=== PATIENT | female | born 1980 | race Two or more races ===

== ENCOUNTER 2018-01-25 19:32 | Inpatient (IN) | payer OTHER ==
[~2018-01-25] VITALS: Ht 160 cm; Wt 60.8 kg
[2018-01-25 19:50] VITALS: BP 106/61
--- NOTE | 2018-01-25 20:03 | Emergency Room Report ---
History of Present Illness General Chief Complaint: Vomiting Source: Patient Present Illness HPI Patient reports that she had gone hiking earlier this afternoon After that they ate outside at a fast food restaurant it was fractured chicken Patient usually eats fairly healthy Soon after that she became nauseated has had several episodes of vomiting epigastric discomfort Denies any chest pain or short of breath and eyes any fevers or chills denies any dysuria frequency Allergies: Coded Allergies: Oyster (Verified Allergy, Unknown, 01/25/18) Patient History Past Medical History: see triage record Pertinent Family History: none Last Menstrual Period: yesterday Now: No Reviewed Nursing Documentation: PMH: Agreed; PSxH: Agreed Nursing Documentation-PMH Past Medical History: No Stated History Review of Systems All Other Systems: negative except mentioned in HPI Physical Exam Vital Signs Date Time Temp Pulse Resp B/P (MAP) Pulse Ox O2 Delivery O2 Flow Rate FiO2 01/25/18 19:42 98.2 91 16 106/66 99 Room Air Sp02 EP Interpretation: reviewed, normal General Appearance: no apparent distress Head: normocephalic, atraumatic Eyes: bilateral eye PERRL, bilateral eye EOMI ENT: hearing grossly normal, normal pharynx Neck: supple Respiratory: lungs clear Cardiovascular #1: regular rate, rhythm, no edema Gastrointestinal: non tender - However subjectively points to epigastric area Musculoskeletal: normal inspection Neurologic: alert, oriented x3, responsive Skin: normal color, no rash Lymphatic: no adenopathy Medical Decision Making Diagnostic Impression: Primary Impression: Appendicitis ER Course With the history exam and presentation, multiple differentials considered, including but not limited to appendicitis, gastritis, cholecystitis, diverticulitis CT imaging does reveal acute appendicitis patient provided broad-spectrum antibiotics requiring further acute surgical intervention and hospital admission Labs Test 01/25/18 20:01 01/25/18 20:10 White Blood Count 20.0 K/UL (4.8-10.8) Red Blood Count 4.17 M/UL (4.20-5.40) Hemoglobin 13.7 G/DL (12.0-16.0) Hematocrit 38.0 % (37.0-47.0) Mean Corpuscular Volume 91 FL (80-99) Mean Corpuscular Hemoglobin 32.9 PG (27.0-31.0) Mean Corpuscular Hemoglobin Concent 36.1 G/DL (32.0-36.0) Red Cell Distribution Width 10.2 % (11.6-14.8) Platelet Count 279 K/UL (150-450) Mean Platelet Volume 6.2 FL (6.5-10.1) Neutrophils (%) (Auto) % (45.0-75.0) Lymphocytes (%) (Auto) % (20.0-45.0) Monocytes (%) (Auto) % (1.0-10.0) Eosinophils (%) (Auto) % (0.0-3.0) Basophils (%) (Auto) % (0.0-2.0) Differential Total Cells Counted 100 Neutrophils % (Manual) 91 % (45-75) Lymphocytes % (Manual) 9 % (20-45) Monocytes % (Manual) 0 % (1-10) Eosinophils % (Manual) 0 % (0-3) Basophils % (Manual) 0 % (0-2) Band Neutrophils 0 % (0-8) Platelet Estimate Adequate Platelet Morphology Normal Red Blood Cell Morphology Normal Urine Color Chastity Urine Appearance Slightly cloudy Urine pH 5 (4.5-8.0) Urine Specific [place] 1.025 (1.005-1.035) Urine Protein 1+ (NEGATIVE) Urine Glucose (UA) Negative (NEGATIVE) Urine Ketones 1+ (NEGATIVE) Urine Blood 4+ (NEGATIVE) Urine Nitrite Negative (NEGATIVE) Urine Bilirubin Negative (NEGATIVE) Urine Ictotest Negative (NEGATIVE) Urine Urobilinogen 1 MG/DL (0.0-1.0) Urine Leukocyte Esterase 1+ (NEGATIVE) Urine RBC 10-15 /HPF (0 - 2) Urine WBC 10-15 /HPF (0 - 2) Urine Squamous Epithelial Cells Many /LPF (NONE/OCC) Urine Bacteria Moderate /HPF (NONE) Urine HCG, Qualitative Negative (NEGATIVE) Sodium Level 141 MMOL/L (136-145) Potassium Level 3.0 MMOL/L (3.5-5.1) Chloride Level 104 MMOL/L (98-107) Carbon Dioxide Level 28 MMOL/L (21-32) Anion Gap 9 mmol/L (5-15) Blood Urea Nitrogen 15 mg/dL (7-18) Creatinine 1.0 MG/DL (0.55-1.30) Estimat Glomerular Filtration Rate > 60 mL/min (>60) Glucose Level 109 MG/DL (74-106) Calcium Level 9.0 MG/DL (8.5-10.1) Total Bilirubin 1.0 MG/DL (0.2-1.0) Aspartate Amino Transf (AST/SGOT) 20 U/L (15-37) Alanine Aminotransferase (ALT/SGPT) 20 U/L (12-78) Alkaline Phosphatase 67 U/L (46-116) Total Protein 8.4 G/DL (6.4-8.2) Albumin 4.0 G/DL (3.4-5.0) Globulin 4.4 g/dL Albumin/Globulin Ratio 0.9 (1.0-2.7) Lipase 81 U/L (73-393) Last Vital Signs Date Time Temp Pulse Resp B/P (MAP) Pulse Ox O2 Delivery O2 Flow Rate FiO2 01/25/18 19:42 98.2 91 16 106/66 99 Room Air Status: improved Disposition: ADMITTED INPATIENT Condition: Serious Constance Augustin DO Jan 25, 2018 20:03
[2018-01-25 20:28] LABS: HEMOGLOBIN 13.7 G/DL (12.0-16.0); MEAN CORPUSCULAR VOLUME 91 FL (80-99); PLATELET COUNT 279 K/UL (150-450); RED BLOOD COUNT 4.17 M/UL (4.20-5.40); RED CELL DISTRIBUTION WIDTH 10.2 % (11.6-14.8)
[2018-01-25 20:30] LABS: BILIRUBIN, URINE NEGATIVE (NEGATIVE); COLOR,URINE AMBER; GLUCOSE, URINE (UA) NEGATIVE (NEGATIVE); KETONES,URINE 1+ (NEGATIVE); LEUKOCYTE ESTERASE ,URINE 1+ (NEGATIVE); NITRITE,URINE NEGATIVE (NEGATIVE); PH,URINE 5 (4.5-8.0); PROTEIN,URINE 1+ (NEGATIVE); UROBILINOGEN,URINE 1 MG/DL (0.0-1.0)
[2018-01-25 20:33] LABS: APPEARANCE,URINE SLIGHTLY CLOUDY
[2018-01-25 20:43] LABS: ANION GAP 9 mmol/L (5-15); BLOOD UREA NITROGEN 15 mg/dL (7-18); CARBON DIOXIDE 28 MMOL/L (21-32); CHLORIDE 104 MMOL/L (98-107); SODIUM 141 MMOL/L (136-145)
[2018-01-25] MEDS ORDERED: Isovue-300 100ml vial INJ PRN (20:45)
[2018-01-25 20:54] LABS: ALANINE AMINOTRANSFERASE 20 U/L (12-78); ALBUMIN/GLOBULIN RATIO 0.9 (1.0-2.7); ALKALINE PHOSPHATASE 67 U/L (46-116); ASPARTATE AMINO TRANSFERASE 20 U/L (15-37)
[2018-01-25] MEDS ORDERED: cefTRIAXone 1 GM in NS 55 ML IVPB ONE (21:00)
--- NOTE | 2018-01-25 21:55 | Diagnostic Imaging Report ---
History: PAIN Exam: CT ABDOMEN + PELVIS With Contrast Technique more: CTDI is 14.12 mGy and DLP is 678 mGy-cm. Technique more: One or more of the following dose reduction techniques were used: automated exposure control, adjustment of the mA and/or kV according to patient size, use of iterative reconstruction technique. Comparison: None available FINDINGS: The lung bases are clear. Abdominal solid organs, gallbladder and abdominal aorta appear within limits. No bowel dilation or free air. Inflamed appendix measuring up to 1 cm with adjacent stranding and edema for example axial 48 and coronal 37 consistent with appendicitis. The ovaries, uterus and bladder appear within limits. Trace pelvic free fluid. Bilateral nonacute L5 spondylolysis. IMPRESSION: Inflamed appendix measuring up to 1 cm with adjacent stranding and edema for example axial 48 and coronal 37 consistent with appendicitis. [employer] 01/25/18 21:52 Call Doctor Regarding Appendicitis, called Constance Augustin MD on 01/25 21:52 (-08:00)
[2018-01-25] MEDS ORDERED: Piperacillin/Tazobactam 3.375 GM in NS 110 ML IVPB ONE (22:00)
[2018-01-25 22:21] VITALS: BP 114/76
--- NOTE | 2018-01-25 22:27 | Consultation ---
History of Present Illness General Date patient seen: Jan 25, 2018 Chief Complaint: Vomiting Reason for Consultation: acute appendicitis Present Illness HPI 37 year old otherwise healthy female presented to ED with complaints of abdominal pain, nausea, and emesis for 1 days. States that at 4pm today began to have generalized abdominal discomfort. Pain began to migrate to pelvic/ lower abdominal region and localized later to RLQ. Pain 10/10cramping at max. currently much improved with meds given in ED. No radiation. associated nausea and non bloody emesis. Came to ED for evaluation. Noted to have leukocytosis of 20k and CT consistent with acute appendicitis. Surgery called to evaluate. patient seen, chart reviewed, patient examined. Allergies: Coded Allergies: Oyster (Verified Allergy, Unknown, 01/25/18) Patient History History Provided By: Patient, Medical Record, PMD Healthcare decision maker Resuscitation status Advanced Directive on File Past Medical/Surgical History Past Medical/Surgical History: (1) Appendicitis Review of Systems All Other Systems: negative except mentioned in HPI Physical Exam General Appearance: no apparent distress, alert Lines, tubes and drains: peripheral HEENT: mucous membranes moist Neck: normal inspection Respiratory/Chest: normal breath sounds, no respiratory distress, no accessory muscle use Cardiovascular/Chest: normal peripheral pulses, normal rate, regular rhythm Abdomen: normal bowel sounds, soft, no organomegaly, no mass, guarding, rebound , tender Extremities: normal inspection, no calf tenderness Neurologic: cardiac monitor II-XII grossly normal, alert, oriented x 3 Last 24 Hour Vital Signs Date Time Temp Pulse Resp B/P (MAP) Pulse Ox O2 Delivery O2 Flow Rate FiO2 01/25/18 22:21 98.2 96 25 114/76 99 Room Air 01/25/18 19:50 98.2 82 16 106/61 99 Room Air 01/25/18 19:50 91 16 Room Air 01/25/18 19:42 98.2 91 16 106/66 99 Room Air Laboratory Tests Test 01/25/18 20:01 01/25/18 20:10 White Blood Count 20.0 K/UL (4.8-10.8) H Red Blood Count 4.17 M/UL (4.20-5.40) L Hemoglobin 13.7 G/DL (12.0-16.0) Hematocrit 38.0 % (37.0-47.0) Mean Corpuscular Volume 91 FL (80-99) Mean Corpuscular Hemoglobin 32.9 PG (27.0-31.0) H Mean Corpuscular Hemoglobin Concent 36.1 G/DL (32.0-36.0) H Red Cell Distribution Width 10.2 % (11.6-14.8) L Platelet Count 279 K/UL (150-450) Mean Platelet Volume 6.2 FL (6.5-10.1) L Neutrophils (%) (Auto) % (45.0-75.0) Lymphocytes (%) (Auto) % (20.0-45.0) Monocytes (%) (Auto) % (1.0-10.0) Eosinophils (%) (Auto) % (0.0-3.0) Basophils (%) (Auto) % (0.0-2.0) Differential Total Cells Counted 100 Neutrophils % (Manual) 91 % (45-75) H Lymphocytes % (Manual) 9 % (20-45) L Monocytes % (Manual) 0 % (1-10) L Eosinophils % (Manual) 0 % (0-3) Basophils % (Manual) 0 % (0-2) Band Neutrophils 0 % (0-8) Platelet Estimate Adequate Platelet Morphology Normal Red Blood Cell Morphology Normal Urine Color Chastity Urine Appearance Slightly cloudy Urine pH 5 (4.5-8.0) Urine Specific [place] 1.025 (1.005-1.035) Urine Protein 1+ (NEGATIVE) H Urine Glucose (UA) Negative (NEGATIVE) Urine Ketones 1+ (NEGATIVE) H Urine Blood 4+ (NEGATIVE) H Urine Nitrite Negative (NEGATIVE) Urine Bilirubin Negative (NEGATIVE) Urine Ictotest Negative (NEGATIVE) Urine Urobilinogen 1 MG/DL (0.0-1.0) H Urine Leukocyte Esterase 1+ (NEGATIVE) H Urine RBC 10-15 /HPF (0 - 2) H Urine WBC 10-15 /HPF (0 - 2) H Urine Squamous Epithelial Cells Many /LPF (NONE/OCC) H Urine Bacteria Moderate /HPF (NONE) H Urine HCG, Qualitative Negative (NEGATIVE) Sodium Level 141 MMOL/L (136-145) Potassium Level 3.0 MMOL/L (3.5-5.1) L Chloride Level 104 MMOL/L (98-107) Carbon Dioxide Level 28 MMOL/L (21-32) Anion Gap 9 mmol/L (5-15) Blood Urea Nitrogen 15 mg/dL (7-18) Creatinine 1.0 MG/DL (0.55-1.30) Estimat Glomerular Filtration Rate > 60 mL/min (>60) Glucose Level 109 MG/DL (74-106) H Calcium Level 9.0 MG/DL (8.5-10.1) Total Bilirubin 1.0 MG/DL (0.2-1.0) Aspartate Amino Transf (AST/SGOT) 20 U/L (15-37) Alanine Aminotransferase (ALT/SGPT) 20 U/L (12-78) Alkaline Phosphatase 67 U/L (46-116) Total Protein 8.4 G/DL (6.4-8.2) H Albumin 4.0 G/DL (3.4-5.0) Globulin 4.4 g/dL Albumin/Globulin Ratio 0.9 (1.0-2.7) L Lipase 81 U/L (73-393) Height (Feet): 5 Height (Inches): 4.00 Weight (Pounds): 140 Medications Current Medications Medications (Trade) Dose Ordered Sig/Liberty Route PRN Reason Start Time Stop Time Status Last Admin Dose Admin Iopamidol (Isovue-300 100ml) 100 ml NOW PRN INJ Radiology Procedure 01/25/18 20:45 Piperacillin Sod/ Tazobactam Sod 3.375 gm/Sodium Chloride 110 ml @ 220 mls/hr ONCE ONCE IVPB 01/25/18 22:00 01/25/18 22:29 01/25/18 22:09 Assessment/Plan Problem List: (1) Appendicitis Assessment & Plan: 37 year old female with early acute appendicitis. Afebrile , HD stable, leukocytosis 20k, CT with acute appy uncomplicated, exam with focal RLQ tenderness. -To OR in AM for lap vs open appy -npo -iv fluids -iv abx -consent. thank you ICD Codes: K37 - Unspecified appendicitis SNOMED: 34579321 Qualifiers: Status: stable Shabbir Ellison Jan 25, 2018 22:27
[2018-01-25] MEDS ORDERED: Mylanta II UD 30ml ORAL PRN (22:30)
[2018-01-25] MEDS ORDERED: Morphine Sulfate 2mg/ml Inj IVP PRN ×2 (22:30)
[2018-01-25] MEDS ORDERED: Morphine Sulfate 4mg/ml Inj (IV/IM USE ONLY) IVP PRN (22:30)
[2018-01-25 23:00] VITALS: BP 104/63
[2018-01-26] VITALS (12 sets, daily range): BP systolic 91–107; BP diastolic 50–71
[2018-01-26] MEDS: D5 1/2NS w/KCl 20mEq 1,000 ML IV SCH ×3 (00:39→19:28)
[2018-01-26] MEDS: Piperacillin/Tazobactam 3.375 GM in NS 110 ML IVPB SCH ×3 (06:16→21:43)
[2018-01-26 07:02] LABS: INR 1.1 (0.9-1.1)
[2018-01-26 07:13] LABS: HEMATOCRIT 34.5 % (37.0-47.0); MEAN CORPUSCULAR VOLUME 91 FL (80-99); PLATELET COUNT 213 K/UL (150-450); RED BLOOD COUNT 3.78 M/UL (4.20-5.40); RED CELL DISTRIBUTION WIDTH 10.4 % (11.6-14.8); WHITE BLOOD COUNT 15.1 K/UL (4.8-10.8)
[2018-01-26 07:35] LABS: ANION GAP 7 mmol/L (5-15); BLOOD UREA NITROGEN 12 mg/dL (7-18); CARBON DIOXIDE 26 MMOL/L (21-32); CHLORIDE 107 MMOL/L (98-107); CREATININE 0.9 MG/DL (0.55-1.30); POTASSIUM 3.5 MMOL/L (3.5-5.1); SODIUM 140 MMOL/L (136-145)
--- NOTE | 2018-01-26 09:15 | History and Physical ---
History of Present Illness General Date patient seen: Jan 26, 2018 Time patient seen: 09:02 Reason for Hospitalization: Vomiting Present Illness HPI 37 yo female with no sig pmh presents with intractable abdominal pain in the RLQ along with nausea and vomiting. Patient states this started 2 days ago, denies ever having these symptoms in the past. States she first thought she may have had food poisoning. Patient states pain is 10/10 in severity. Denies radiation of the pain. Patient came to ED for further eval, CT was completed and reviewed which was consistent with acute appendicitis hence gen surgery was consulted. ABx were started due to sepsis. soc hx: reviewed, denies smoking, drinking alcohol, or drug use fam hx: reviewed, denies any sig past family history Code status reviewed with patient, FULL CODE. Allergies: Coded Allergies: Oyster (Verified Allergy, Unknown, 01/25/18) Patient History History Provided By: Patient Healthcare decision maker Resuscitation status Full Code Advanced Directive on File No Review of Systems Constitutional: Reports: weakness; Denies: no symptoms, see HPI, chills, sweats , fever, malaise, other Eye: Denies: no symptoms, see HPI, eye pain, blurred vision, tearing, double vision, nose pain, nose congestion, acuity changes, discharge, other ENT: Denies: no symptoms, see HPI, ear pain, ear discharge, nose pain, nose congestion, throat pain, throat swelling, mouth pain, hearing loss, nasal discharge, other Respiratory: Denies: no symptoms, see HPI, cough, orthopnea, shortness of breath, stridor, wheezing, CRUZ, sputum, other Cardiovascular: Denies: no symptoms, see HPI, chest pain, edema, palpitations, syncope, PND, other Gastrointestinal: Reports: abdominal pain, nausea, vomiting; Denies: no symptoms, see HPI, constipation, diarrhea, melena, hematemesis, other Genitourinary: Denies: no symptoms, see HPI, discharge, dysuria, frequency, hematuria, pain, retention, incontinence, urgency, vag bleed/dc, other Musculoskeletal: Denies: no symptoms, see HPI, back pain, gout, joint pain, joint swelling, muscle pain, muscle stiffness, other Skin: Denies: no symptoms, see HPI, rash, change in color, change in hair/nails , dryness, lesions, other Psychiatric: Denies: no symptoms, see HPI, prior hx, anxiety, depressed feelings, emotional problems, SI, HI, hallucinations, other Neurological: Denies: no symptoms, see HPI, headache, numbness, paresthesia, seizure, tingling, tremors, focal weakness, syncope, dizziness, other Endocrine: Denies: no symptoms, see HPI, excessive sweating, flushing, intolerance to temperature, increased thirst, increased urine, unexplained weight loss, other Hematologic/Lymphatic: Denies: no symptoms, see HPI, anemia, blood clots, easy bleeding, easy bruising, swollen glands, diathesis, other Physical Exam General Appearance: WD/WN, no apparent distress, alert Lines, tubes and drains: peripheral HEENT: normocephalic, atraumatic, mucous membranes moist, PERRL Neck: non-tender, normal alignment, supple, normal inspection, abnormal alignment Respiratory/Chest: chest wall non-tender, lungs clear, normal breath sounds, no respiratory distress, no accessory muscle use Cardiovascular/Chest: normal peripheral pulses, normal rate, regular rhythm Abdomen: normal bowel sounds, non tender, soft, no organomegaly, no mass Extremities: normal range of motion, non-tender, normal inspection, no calf tenderness, normal capillary refill Skin Exam: normal pigmentation, warm/dry 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, no motor/sensory deficits, alert, oriented x 3 Last 24 Hour Vital Signs Date Time Temp Pulse Resp B/P (MAP) Pulse Ox O2 Delivery O2 Flow Rate FiO2 01/26/18 04:00 98.2 89 18 107/68 (81) 97 01/26/18 01:43 Room Air 01/26/18 01:30 97.6 86 18 104/65 (78) 93 01/25/18 23:00 98.2 97 20 104/63 (77) 97 01/25/18 23:00 98.6 95 21 114/70 99 Room Air 95 01/25/18 22:21 98.2 96 25 114/76 99 Room Air 01/25/18 19:50 98.2 82 16 106/61 99 Room Air 01/25/18 19:50 91 16 Room Air 01/25/18 19:42 98.2 91 16 106/66 99 Room Air Intake and Output 01/25/18 01/26/18 19:00 07:00 Intake Total 2500 ml Balance 2500 ml Intake IV Total 2500 ml # Voids 2 Laboratory Tests Test 01/25/18 20:01 01/25/18 20:10 01/26/18 05:30 White Blood Count 20.0 K/UL (4.8-10.8) H 15.1 K/UL (4.8-10.8) H Red Blood Count 4.17 M/UL (4.20-5.40) L 3.78 M/UL (4.20-5.40) L Hemoglobin 13.7 G/DL (12.0-16.0) 12.0 G/DL (12.0-16.0) Hematocrit 38.0 % (37.0-47.0) 34.5 % (37.0-47.0) L Mean Corpuscular Volume 91 FL (80-99) 91 FL (80-99) Mean Corpuscular Hemoglobin 32.9 PG (27.0-31.0) H 31.7 PG (27.0-31.0) H Mean Corpuscular Hemoglobin Concent 36.1 G/DL (32.0-36.0) H 34.7 G/DL (32.0-36.0) Red Cell Distribution Width 10.2 % (11.6-14.8) L 10.4 % (11.6-14.8) L Platelet Count 279 K/UL (150-450) 213 K/UL (150-450) Mean Platelet Volume 6.2 FL (6.5-10.1) L 6.7 FL (6.5-10.1) Neutrophils (%) (Auto) % (45.0-75.0) % (45.0-75.0) Lymphocytes (%) (Auto) % (20.0-45.0) % (20.0-45.0) Monocytes (%) (Auto) % (1.0-10.0) % (1.0-10.0) Eosinophils (%) (Auto) % (0.0-3.0) % (0.0-3.0) Basophils (%) (Auto) % (0.0-2.0) % (0.0-2.0) Differential Total Cells Counted 100 100 Neutrophils % (Manual) 91 % (45-75) H 86 % (45-75) H Lymphocytes % (Manual) 9 % (20-45) L 9 % (20-45) L Monocytes % (Manual) 0 % (1-10) L 5 % (1-10) Eosinophils % (Manual) 0 % (0-3) 0 % (0-3) Basophils % (Manual) 0 % (0-2) 0 % (0-2) Band Neutrophils 0 % (0-8) 0 % (0-8) Platelet Estimate Adequate Adequate Platelet Morphology Normal Normal Red Blood Cell Morphology Normal Normal Urine Color Chastity Urine Appearance Slightly cloudy Urine pH 5 (4.5-8.0) Urine Specific [place] 1.025 (1.005-1.035) Urine Protein 1+ (NEGATIVE) H Urine Glucose (UA) Negative (NEGATIVE) Urine Ketones 1+ (NEGATIVE) H Urine Blood 4+ (NEGATIVE) H Urine Nitrite Negative (NEGATIVE) Urine Bilirubin Negative (NEGATIVE) Urine Ictotest Negative (NEGATIVE) Urine Urobilinogen 1 MG/DL (0.0-1.0) H Urine Leukocyte Esterase 1+ (NEGATIVE) H Urine RBC 10-15 /HPF (0 - 2) H Urine WBC 10-15 /HPF (0 - 2) H Urine Squamous Epithelial Cells Many /LPF (NONE/OCC) H Urine Bacteria Moderate /HPF (NONE) H Urine HCG, Qualitative Negative (NEGATIVE) Sodium Level 141 MMOL/L (136-145) 140 MMOL/L (136-145) Potassium Level 3.0 MMOL/L (3.5-5.1) L 3.5 MMOL/L (3.5-5.1) Chloride Level 104 MMOL/L (98-107) 107 MMOL/L (98-107) Carbon Dioxide Level 28 MMOL/L (21-32) 26 MMOL/L (21-32) Anion Gap 9 mmol/L (5-15) 7 mmol/L (5-15) Blood Urea Nitrogen 15 mg/dL (7-18) 12 mg/dL (7-18) Creatinine 1.0 MG/DL (0.55-1.30) 0.9 MG/DL (0.55-1.30) Estimat Glomerular Filtration Rate > 60 mL/min (>60) > 60 mL/min (>60) Glucose Level 109 MG/DL (74-106) H 115 MG/DL (74-106) H Calcium Level 9.0 MG/DL (8.5-10.1) 8.0 MG/DL (8.5-10.1) L Total Bilirubin 1.0 MG/DL (0.2-1.0) Aspartate Amino Transf (AST/SGOT) 20 U/L (15-37) Alanine Aminotransferase (ALT/SGPT) 20 U/L (12-78) Alkaline Phosphatase 67 U/L (46-116) Total Protein 8.4 G/DL (6.4-8.2) H Albumin 4.0 G/DL (3.4-5.0) Globulin 4.4 g/dL Albumin/Globulin Ratio 0.9 (1.0-2.7) L Lipase 81 U/L (73-393) Prothrombin Time 11.2 SEC (9.30-11.50) Prothromb Time International Ratio 1.1 (0.9-1.1) Activated Partial Thromboplast Time 26 SEC (23-33) Height (Feet): 5 Height (Inches): 3.00 Weight (Pounds): 134 Medications Current Medications Medications (Trade) Dose Ordered Sig/[place]iber[place] Route PRN Reason Start Time Stop Time Status Last Admin Dose Admin Acetaminophen (Tylenol) 650 mg Q4H PRN ORAL fever 01/25/18 22:30 02/24/18 22:29 Al Hydroxide/Mg Hydroxide (Mylanta II) 30 ml Q6H PRN ORAL dyspepsia 01/25/18 22:30 02/24/18 22:29 Dextrose (Dextrose 50%) 25 ml Q30M PRN IV Hypoglycemia 01/25/18 22:30 02/24/18 22:29 Dextrose (Dextrose 50%) 50 ml Q30M PRN IV Hypoglycemia 01/25/18 22:30 02/24/18 22:29 Dextrose/ Electrolytes 1,000 ml @ 100 mls/hr Q10H IV 01/25/18 23:28 02/24/18 23:27 01/26/18 00:39 Diphenhydramine HCl (Benadryl) 25 mg Q6H PRN ORAL Itching/Pruritis 01/25/18 22:30 02/24/18 22:29 Famotidine (Pepcid I.v.) 20 mg Q12HR IVP 01/25/18 22:45 02/24/18 22:44 01/26/18 00:26 Iopamidol (Isovue-300 100ml) 100 ml NOW PRN INJ Radiology Procedure 01/25/18 20:45 Morphine Sulfate (Morphine Sulfate) 1 mg Q4H PRN IVP For Pain 01/25/18 22:30 02/01/18 22:29 Morphine Sulfate (Morphine Sulfate) 2 mg EVERY 4 HOURS PRN IVP Moderate Pain (Pain Scale 4-6) 01/25/18 22:30 02/01/18 22:29 Morphine Sulfate (Morphine Sulfate) 4 mg EVERY 4 HOURS PRN IVP Severe Pain (Pain Scale 7-10) 01/25/18 22:30 02/01/18 22:29 Ondansetron HCl (Zofran) 4 mg Q6H PRN IVP Nausea & Vomiting 01/26/18 02:00 02/25/18 01:59 Piperacillin Sod/ Tazobactam Sod 3.375 gm/Sodium Chloride 110 ml @ 27.5 mls/hr EVERY 8 HOURS IVPB 01/26/18 06:00 02/02/18 05:59 01/26/18 06:16 Assessment/Plan Problem List: (1) Sepsis due to Gram negative bacteria Assessment & Plan: HR 91, WBC 20, ct reviewed showing evidence of appendicitis zosyn bcx x 2 pain control antiemetics gen surg called by ED, plan for OR this AM npo ICD Codes: A41.50 - Gram-negative sepsis, unspecified SNOMED: 008256828 (2) Acute appendicitis Assessment & Plan: npo, ivf abx OR this AM pain control ICD Codes: K35.80 - Unspecified acute appendicitis SNOMED: 15718878 (3) Intractable nausea and vomiting Assessment & Plan: prn antiemetics due to appendicitis ICD Codes: R11.2 - Nausea with vomiting, unspecified SNOMED: 755936968 Qualifiers: Qualified Codes: G43.A1 - Cyclical vomiting, intractable (4) Intractable abdominal pain Assessment & Plan: pain control morphine antiemetics abx OR today ICD Codes: R10.9 - Unspecified abdominal pain SNOMED: [id number], [id number] Status: stable Assessment/Plan ppx: scd diet: npo I have spend over 77 mintues regarding patient care and counseling and 40 minutes of face to face time. Eladia Ortiz MD Jan 26, 2018 09:15
[2018-01-26] MEDS ORDERED: Bupivacaine w/Epi 0.25% 30ml Vial INJ ONE (11:00)
[2018-01-26] MEDS ORDERED: fentaNYL 100 mcg/2 mL IV ONE (11:05)
[2018-01-26] MEDS ORDERED: Lidocaine 1% MPF 10mg/ml 5ml ONE (11:05)
[2018-01-26] MEDS ORDERED: Midazolam 2mg/2ml Inj ONE (11:05)
[2018-01-26] MEDS ORDERED: Ketorolac 30mg Inj ONE (11:05)
[2018-01-26] MEDS ORDERED: Propofol 200mg/20ml IV ONE (11:05)
[2018-01-26] MEDS ORDERED: Zemuron 50mg/5ml Inj IV ONE (11:18)
[2018-01-26] MEDS ORDERED: NS Irrig 1000ml ONE (11:30)
[2018-01-26] MEDS ORDERED: Succinylcholine 20mg/ml 10ml vial ONE (11:30)
[2018-01-26] MEDS ORDERED: Glycopyrrolate 0.2mg/ml 1ml Vial ONE (11:30)
[2018-01-26] MEDS ORDERED: LR 1000ml ONE (11:30)
[2018-01-26] MEDS ORDERED: Sterile Water Irrig 1000ml IRRIG ONE (11:30)
[2018-01-26] MEDS ORDERED: Neostigmine 1mg/ml 10ml Inj ONE (11:30)
--- NOTE | 2018-01-26 11:37 | Pre-Procedure Note/Attestation ---
Pre-Procedure Note/Attestation Complete Prior to Procedure Planned Procedure: not applicable Procedure Narrative: lap vs open appendectomy Indications for Procedure Pre-Operative Diagnosis: acute appendicitis Attestation I attest that I discussed the nature of the procedure; its benefits; risks and complications; and alternatives (and the risks and benefits of such alternatives ), prior to the procedure, with the patient (or the patient's legal customer relations representative). I attest that, if there was a reasonable possibility of needing a blood transfusion, the patient (or the patient's legal customer relations representative) was given the [facility] standardized written summary, pursuant to the [employer] [place] Blood Safety Act ([place] Health and Safety Code # 1645, as amended). I attest that I re-evaluated the patient just prior to the surgery and that there has been no change in the patient's H&P, except as documented below: Shabbir Ellison Jan 26, 2018 11:37
[2018-01-26] MEDS ORDERED: NS Irrig 1000ml IRRIG ONE (12:02)
[2018-01-26] MEDS ORDERED: LR 1000ml 1,000 ML IVLG SCH (12:07)
--- NOTE | 2018-01-26 12:07 | Anethesia Preoperative Eval ---
Anesthesia Pre-op PMH/ROS General Date of Evaluation: Jan 26, 2018 Time of Evaluation: 11:16 Anesthesiologist: Augustine ASA Score: ASA 2 Mallampati Score Class I : Soft palate, uvula, fauces, pillars visible Class II: Soft palate, uvula, fauces visible Class III: Soft palate, base of uvula visible Class IV: Only hard plate visible Mallampati Classification: Class II Surgeon: Rosaline Diagnosis: Acute appendicitis Surgical Procedure: Appendectomy Anesthesia History: none Family History: no anesthesia problems Allergies: Coded Allergies: Oyster (Verified Allergy, Unknown, 01/25/18) Medications: see eMAR Patient NPO?: Yes NPO Date: Jan 25, 2018 Past Medical History Cardiovascular: Denies: HTN, CAD, NH, valve dz, arrhythmia, other Pulmonary: Denies: asthma, COPD, JF, other Gastrointestinal/Genitourinary: Reports: GERD - mild; Denies: CRI, ESRD, other Neurologic/Psychiatric: Denies: dementia, CVA, depression/anxiety, TIA, other Endocrine: Denies: DM, hypothyroidism, steroids, other HEENT: Denies: cataract (L), cataract (R), glaucoma, [place] (L), [place] (R), other Hematology/Immune: Denies: anemia, DVT, bleeding disorder, other Musculoskeletal/Integumentary: Denies: OA, RA, DJD, DDD, edema, other PMH Narrative: acutely ill, admitted with abdominal pain Nausea and vomiting diagnosed with acute appendicitis 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 Exam Physician Exam Last Vital Signs Date Time Temp Pulse Resp B/P (MAP) Pulse Ox O2 Delivery O2 Flow Rate FiO2 01/26/18 09:00 Room Air 01/26/18 08:00 98.4 98 20 101/65 (77) 97 Constitutional: NAD Neurologic: CN 2-12 intact Cardiovascular: RRR, no M/R/G Respiratory: CTA Gastrointestinal: other - some tenderness on palpation Airway Exam Mallampati Score: Class II MO: full Neck: flexible ROM: full Teeth: intact Dentures: no upper, no lower Anesthesia Pre-op A/P Labs Hematology Test 01/25/18 20:01 01/26/18 05:30 White Blood Count 20.0 K/UL (4.8-10.8) H 15.1 K/UL (4.8-10.8) H Red Blood Count 4.17 M/UL (4.20-5.40) L 3.78 M/UL (4.20-5.40) L Hemoglobin 13.7 G/DL (12.0-16.0) 12.0 G/DL (12.0-16.0) Hematocrit 38.0 % (37.0-47.0) 34.5 % (37.0-47.0) L Mean Corpuscular Volume 91 FL (80-99) 91 FL (80-99) Mean Corpuscular Hemoglobin 32.9 PG (27.0-31.0) H 31.7 PG (27.0-31.0) H Mean Corpuscular Hemoglobin Concent 36.1 G/DL (32.0-36.0) H 34.7 G/DL (32.0-36.0) Red Cell Distribution Width 10.2 % (11.6-14.8) L 10.4 % (11.6-14.8) L Platelet Count 279 K/UL (150-450) 213 K/UL (150-450) Mean Platelet Volume 6.2 FL (6.5-10.1) L 6.7 FL (6.5-10.1) Neutrophils (%) (Auto) % (45.0-75.0) % (45.0-75.0) Lymphocytes (%) (Auto) % (20.0-45.0) % (20.0-45.0) Monocytes (%) (Auto) % (1.0-10.0) % (1.0-10.0) Eosinophils (%) (Auto) % (0.0-3.0) % (0.0-3.0) Basophils (%) (Auto) % (0.0-2.0) % (0.0-2.0) Differential Total Cells Counted 100 100 Neutrophils % (Manual) 91 % (45-75) H 86 % (45-75) H Lymphocytes % (Manual) 9 % (20-45) L 9 % (20-45) L Monocytes % (Manual) 0 % (1-10) L 5 % (1-10) Eosinophils % (Manual) 0 % (0-3) 0 % (0-3) Basophils % (Manual) 0 % (0-2) 0 % (0-2) Band Neutrophils 0 % (0-8) 0 % (0-8) Platelet Estimate Adequate Adequate Platelet Morphology Normal Normal Red Blood Cell Morphology Normal Normal Coagulation Test 01/26/18 05:30 Prothrombin Time 11.2 SEC (9.30-11.50) Prothromb Time International Ratio 1.1 (0.9-1.1) Activated Partial Thromboplast Time 26 SEC (23-33) Chemistry Test 01/25/18 20:10 01/26/18 05:30 Sodium Level 141 MMOL/L (136-145) 140 MMOL/L (136-145) Potassium Level 3.0 MMOL/L (3.5-5.1) L 3.5 MMOL/L (3.5-5.1) Chloride Level 104 MMOL/L (98-107) 107 MMOL/L (98-107) Carbon Dioxide Level 28 MMOL/L (21-32) 26 MMOL/L (21-32) Anion Gap 9 mmol/L (5-15) 7 mmol/L (5-15) Blood Urea Nitrogen 15 mg/dL (7-18) 12 mg/dL (7-18) Creatinine 1.0 MG/DL (0.55-1.30) 0.9 MG/DL (0.55-1.30) Estimat Glomerular Filtration Rate > 60 mL/min (>60) > 60 mL/min (>60) Glucose Level 109 MG/DL (74-106) H 115 MG/DL (74-106) H Calcium Level 9.0 MG/DL (8.5-10.1) 8.0 MG/DL (8.5-10.1) L Total Bilirubin 1.0 MG/DL (0.2-1.0) Aspartate Amino Transf (AST/SGOT) 20 U/L (15-37) Alanine Aminotransferase (ALT/SGPT) 20 U/L (12-78) Alkaline Phosphatase 67 U/L (46-116) Total Protein 8.4 G/DL (6.4-8.2) H Albumin 4.0 G/DL (3.4-5.0) Globulin 4.4 g/dL Albumin/Globulin Ratio 0.9 (1.0-2.7) L Lipase 81 U/L (73-393) Urine Test Test 01/25/18 20:10 Urine HCG, Qualitative Negative (NEGATIVE) Risk Assessment & Plan Assessment: ASA 2E Plan: GA with ETT Status Change Before Surgery: No Pre-Antibiotics Drug: Ancef 1gr. Given Within 1 Hr of Incision: Yes Time Given: 11:48 Jorge Bradshaw MD Jan 26, 2018 12:07
[2018-01-26] MEDS ORDERED: Midazolam 2mg/2ml Inj IVP PRN (12:15)
[2018-01-26] MEDS ORDERED: Metoclopramide 10mg/2ml Inj IVP PRN (12:15)
[2018-01-26] MEDS ORDERED: DiphenhydrAMINE 50mg/ml Inj IVP PRN (12:15)
[2018-01-26] MEDS ORDERED: Morphine Sulfate 2mg/ml Inj IVP PRN ×3 (12:15→12:45)
[2018-01-26] MEDS ORDERED: Ketorolac 30mg Inj IV PRN ×2 (12:15→12:45)
[2018-01-26] MEDS ORDERED: Meperidine 50mg/ml Inj(FOR RIGORS ONLY) IV PRN (12:15)
--- NOTE | 2018-01-26 12:32 | Brief Operative Note ---
Immediate Post Operative Note Operative Note Pre-op Diagnosis: acute appendicitis Procedure: laparoscopic appendectomy Post-op Diagnosis: same as pre-op Surgeon: tavares Anesthesiologist: Augustine Anesthesia: general, local Specimen: yes Complications: none Condition: stable Fluids: see records Estimated Blood Loss: minimal Drains: none Implant(s) used?: No Shabbir Ellison Jan 26, 2018 12:32
--- NOTE | 2018-01-26 12:38 | Immediate Post-Op Evaluation ---
Immediate Post-Op Evalulation Immediate Post-Op Evalulation Procedure: Laparoscopic appendectomy Date of Evaluation: Jan 26, 2018 Time of Evaluation: 12:36 IV Fluids: 800 Blood Products: none Estimated Blood Loss: min Urinary Output: none Blood Pressure Systolic: 96 Blood Pressure Diastolic: 56 Pulse Rate: 64 Respiratory Rate: 20 O2 Sat by Pulse Oximetry: 99 Temperature (Fahrenheit): 98.6 Pain Score (1-10): 1 Nausea: No Vomiting: No Complications none Patient Status: reacts, patent, extubated, none Hydration Status: adequate Jorge Bradshaw MD Jan 26, 2018 12:38
[2018-01-26] MEDS ORDERED: Morphine Sulfate 4mg/ml Inj (IV/IM USE ONLY) IVP PRN (12:45)
[2018-01-26] MEDS ORDERED: HYDROcodone/Acetamin 10/325 tab ORAL PRN (12:45)
[2018-01-26] MEDS ORDERED: Piperacillin/Tazobactam 3.375 GM in NS 110 ML IVPB SCH (14:00)
[2018-01-26] MEDS: Norco 5mg/325mg tab ORAL PRN ×2 (14:37→20:00)
[2018-01-26] MEDS: Docusate 100mg cap ORAL SCH (18:39)
--- NOTE | 2018-01-26 19:30 | Operative Note - Dictated ---
DATE OF OPERATION: 01/26/2018 PREOPERATIVE DIAGNOSIS: Acute appendicitis. POSTOPERATIVE DIAGNOSIS: Acute retrocecal appendicitis. OPERATION PERFORMED: Laparoscopic appendectomy. ATTENDING SURGEON: Shabbir Ellison M.D. NET APPLICATION ARCHITECT: None. ANESTHESIOLOGIST: Jorge Bradshaw M.D. 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 ESTIMATED BLOOD LOSS: Minimal. IV FLUIDS: Please see anesthesia records. COMPLICATIONS: None. DRAINS: None. SPECIMEN: Appendix sent to pathology for review. ANTIBIOTICS: The patient on scheduled IV Zosyn. WOUND CLASSIFICATION: Class 3. COUNT: Sponge and needle count correct x2. INDICATIONS FOR PROCEDURE: This is a 37-year-old female who presented to the emergency department at [facility] complaining of worsening lower abdominal pain x1 day. The pain is associated with nausea and emesis. The patient was identified to have a leukocytosis and CT scan consistent with acute appendicitis. Surgery was indicated and recommended. Risks, benefits, and alternatives were discussed with the patient who expressed understanding and consented for surgery. OPERATIVE NOTE: The patient was taken to the operating room and placed on the operative table in supine position. Bilateral arms out. All bony prominences well padded. SCDs were placed. Preoperative time-out was taken identifying the patient, procedure, operative staff, and surgical staff. No Womack catheter was inserted given the patient voided prior to entering the operating room. The patient was already on scheduled IV antibiotics for acute active inflammatory process. The left arm was tucked. General anesthesia was induced and the patient was intubated. The abdomen was clipped, prepped and draped in standard surgical fashion. An umbilical incision was made using a #11-scalpel. Incision was carried down to the fascia, which was incised and divided. Entry into the abdomen obtained using the open Ajay technique. A 12 mm Ajay trocar was inserted and the abdomen was insufflated to 12 to 15 mmHg. The patient tolerated the insufflation well. Laparoscope was inserted and the abdomen was inspected. No acute abnormalities or complication from initial trocar placement noted. Secondary trocars were placed under direct visualization beginning with a 12 mm left lower quadrant port followed by 5 mm suprapubic port. No complication from secondary trocar placement noted. The patient was placed in Trendelenburg position with left side down. The cecum was identified and tenia was followed to the confluence where the base of the appendix was noted. The appendix was inflamed and noted to be retrocecal. The appendix was dissected from its retrocecal peritoneal attachments until free. Once completely freed, it was noted to be inflamed uncomplicated without perforation. There was recent free fluid noted in the pelvis. A window was made in the base of the appendix and the appendix was divided using a laparoscopic linear staple. Following this, the mesoappendix was divided in a similar fashion using a laparoscopic linear stapler. Hemostasis was achieved with a 10 mm laparoscopic clip. Once this was completed, the appendix was placed in endoscopic retrieval bag and removed from the abdomen using the left lower quadrant port. The right lower quadrant and pelvis were irrigated and suctioned until clean. The remainder of the abdomen was inspected and otherwise normal. At this time began, we began conclusion of our procedure. Secondary trocars were removed under direct visualization. The umbilical trocar site was removed and the abdomen was desufflated. The fascial incision of the left lower quadrant port and umbilical trocar site were reapproximated using #0 Vicryl [id number] sutures. The skin incisions were cleansed. Local anesthetic was infiltrated and the skin incisions were reapproximated using 4-0 Monocryl subcuticular interrupted sutures. The patient tolerated the procedure well, was extubated and sent to the postanesthetic care unit in stable condition. Shabbir Ellison M.D. DR: Phil JOB#: [id number] CC: MATTHEW
[2018-01-27] VITALS: BP 97/59
[2018-01-27 04:00] VITALS: BP 107/66
[2018-01-27] MEDS: D5 1/2NS w/KCl 20mEq 1,000 ML IV SCH (05:28)
[2018-01-27] MEDS: Norco 5mg/325mg tab ORAL PRN ×2 (05:58→11:38)
[2018-01-27] MEDS: Piperacillin/Tazobactam 3.375 GM in NS 110 ML IVPB SCH (06:09)
[2018-01-27 07:10] LABS: BASOPHILS % (AUTO) 0.1 % (0.0-2.0); EOSINOPHILS % (AUTO) 0.1 % (0.0-3.0); HEMATOCRIT 31.4 % (37.0-47.0); HEMOGLOBIN 10.8 G/DL (12.0-16.0); MEAN CORPUSCULAR VOLUME 92 FL (80-99); MONOCYTES % (AUTO) 4.8 % (1.0-10.0); NEUTROPHILS % (AUTO) 84.9 % (45.0-75.0); PLATELET COUNT 167 K/UL (150-450); RED BLOOD COUNT 3.41 M/UL (4.20-5.40); RED CELL DISTRIBUTION WIDTH 10.3 % (11.6-14.8); WHITE BLOOD COUNT 7.5 K/UL (4.8-10.8)
[2018-01-27 07:19] LABS: ANION GAP 6 mmol/L (5-15); BLOOD UREA NITROGEN 7 mg/dL (7-18); CALCIUM 8.2 MG/DL (8.5-10.1); CARBON DIOXIDE 27 MMOL/L (21-32); CHLORIDE 105 MMOL/L (98-107); CREATININE 0.9 MG/DL (0.55-1.30); POTASSIUM 3.8 MMOL/L (3.5-5.1); SODIUM 138 MMOL/L (136-145)
[2018-01-27 08:00] VITALS: BP 106/67
[2018-01-27] MEDS: Docusate 100mg cap ORAL SCH (08:55)
[2018-01-27 09:14] VITALS: BP 108/72
--- NOTE | 2018-01-27 09:15 | 48 Hour Post Anesthesia Eval ---
Post Anesthesia Evaluation Procedure: Laparoscopic appendectomy Date of Evaluation: Jan 27, 2018 Time of Evaluation: 09:13 Blood Pressure Systolic: 108 0: 72 Pulse Rate: 68 Respiratory Rate: 20 Temperature (Fahrenheit): 97.6 O2 Sat by Pulse Oximetry: 98 Airway: patent Nausea: No Vomiting: No Pain Intensity: 3 Hydration Status: adequate Cardiopulmonary Status: stable Mental Status/LOC: patient returned to baseline Follow-up Care/Observations: n/a Post-Anesthesia Complications: none Follow-up care needed: ready to discharge Jorge Bradshaw MD Jan 27, 2018 09:14
--- NOTE | 2018-01-27 09:43 | Discharge Summary ---
Discharge Summary Hospital Course Date of Admission Jan 25, 2018 at 21:58 Date of Discharge 01/27/18 Admitting Diagnosis acute appendicitis HPI Jaci Powell is a 37 year old female who was admitted on Jan 25, 2018 at 21:58 for Acute Appendicitis Hospital Course 7 yo female with no sig pmh presents with intractable abdominal pain in the RLQ along with nausea and vomiting. Patient states this started 2 days ago, denies ever having these symptoms in the past. States she first thought she may have had food poisoning. Patient states pain is 10/10 in severity. Denies radiation of the pain. Patient came to ED for further eval, CT was completed and reviewed which was consistent with acute appendicitis hence gen surgery was consulted. ABx were started due to sepsis. Gen surgery evaluated and took patient to OR for lap appendectomy, no complications noted patient's pain has resolved. stable, doing well. tolerating diet, no n/v stable f/u with pcp and gen surg in 1 week for eval Physical Exam: Physical Exam General Appearance: WD/WN, no apparent distress, alert Lines, tubes and drains: peripheral HEENT: normocephalic, atraumatic, mucous membranes moist, PERRL Neck: non-tender, normal alignment, supple, normal inspection, abnormal alignment Respiratory/Chest: chest wall non-tender, lungs clear, normal breath sounds, no respiratory distress, no accessory muscle use Cardiovascular/Chest: normal peripheral pulses, normal rate, regular rhythm Abdomen: normal bowel sounds, non tender, soft, no organomegaly, no mass Extremities: normal range of motion, non-tender, normal inspection, no calf tenderness, normal capillary refill Skin Exam: normal pigmentation, warm/dry 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 normal, no motor/sensory deficits, alert, oriented x 3 (1) Sepsis due to Gram negative bacteria Assessment & Plan: resolved s/p lap appy dc with levofloxacin and norco ICD Codes: A41.50 - Gram-negative sepsis, unspecified SNOMED: 089357944 (2) Acute appendicitis Assessment & Plan: npo, ivf abx OR this AM pain control ICD Codes: K35.80 - Unspecified acute appendicitis SNOMED: 99889551 (3) Intractable nausea and vomiting Assessment & Plan: prn antiemetics due to appendicitis ICD Codes: R11.2 - Nausea with vomiting, unspecified SNOMED: 331345278 Qualifiers: Qualified Codes: G43.A1 - Cyclical vomiting, intractable (4) Intractable abdominal pain Assessment & Plan: pain control morphine antiemetics abx OR today ICD Codes: R10.9 - Unspecified abdominal pain SNOMED: 56752168, [id number] I have spent over 44 minutes in the coordination in care and arranging appropriate discharge for patient dc patient home Discharge Condition Upon Discharge: stable Discharge Disposition Patient was discharged to Discharge Diagnoses: (1) Sepsis due to Gram negative bacteria (2) Intractable nausea and vomiting (3) Intractable abdominal pain (4) Appendicitis Eladia Ortiz MD Jan 27, 2018 09:43
--- NOTE | 2018-01-27 11:06 | General Progress Note ---
Progress Note Progress Note Surgery: doing great. no acute events. incisional pain. no n/v/f/c. afebrile, HD stable, labs okay abd soft, incision c/d/i. mild distention, incisional tenderness s/p lap appy -diet as tolerated d/c home f/u2 weeks Shabbir Ellison Jan 27, 2018 11:06
== END 2018-01-27 11:50 | disposition home or self-care (01) | DRG 854 ==
LOC: EMR 20:29 → EDBEDREQ 21:57 → 4E 21:58 → EDBEDREQ 22:17
PROC: 0DTJ4ZZ Resection of Appendix, Percutaneous Endoscopic Approach (ICD-10-PCS; principal; 2018-01-26 11:30)
DX: A41.50 Gram-negative sepsis, unspecified (principal); K35.80 Unspecified acute appendicitis
CPT/HCPCS: 36415; 74177; 80048; 80053; 81003; 81025; 83690; 85007; 85025; 85610; 85730; 87040; 87086; 87181; 94003; 94150; 96361; 96365; 96375; 99285; J2250; J2405; J2710